=== PATIENT | female | born 1950 | race Caucasian/White ===

== ENCOUNTER 2018-11-18 08:47 | Observation (INO) ==
[2018-11-18] MEDS ORDERED: SODIUM CHLORIDE 0.9% 1,000 ML IV STA (09:07)
[2018-11-18] MEDS ORDERED: DICYCLOMINE 20 MG/2 ML AMP IM ONE (09:07)
[2018-11-18] MEDS ORDERED: METOCLOPRAMIDE 10 MG/2 ML VIAL IV STA (09:07)
[2018-11-18] MEDS ORDERED: PANTOPRAZOLE 40 MG VIAL IV STA (09:07)
[2018-11-18] MEDS ORDERED: metroNIDAZOLE INJ 500 MG in PREMIX 1 EACH IV STA (09:07)
[2018-11-18] MEDS ORDERED: ONDANSETRON 4 MG/2 ML VIAL IV STA (09:07)
[2018-11-18 09:21] LABS: Basophils % 0.3 % (0.0-0.8); Eosinophils # 0.1 10*3/uL (0.0-0.87); Eosinophils % 0.9 % (0.00-10.9); Hematocrit 36.9 VOL% (35.7-47.0); Hemoglobin 11.7 GM/DL (12.0-16.0); Immature Granulocytes % 0.3 %; Immature Granulocytes Absolute 0.02 #; Lymphocytes # 1.8 10*3/uL (1.4-4.0); Lymphocytes % 27.7 % (21.3-54.2); Mean Corpuscular HGB Conc 31.7 GM/DL (32-36); Mean Corpuscular Volume 76.4 FL (87-102); Mean Platelet Volume 11.2 FL (9.6-12.0); Monocytes % 9.6 % (1.7-12.7); Neutrophils % 61.2 % (38.7-73.9); Platelet Count 234 T/CUMM (130-400); Red Blood Count 4.83 MC/CUMM (3.8-5.5); Red Cell Distribution Width 22.2 % (9.3-17.3); White Blood Count 6.6 T/CUMM (4-12)
[2018-11-18 09:51] LABS: Alanine Aminotransferase 30 U/L (13-56); Albumin 3.8 G/DL (3.4-5.0); Alkaline Phosphatase 155 U/L (45-117); Amylase 107 U/L (25-115); Aspartate Amino Transferase 23 U/L (0-37); Bilirubin,Total < 0.39 MG/DL (0.2-1.0); Blood Urea Nitrogen 40 MG/DL (7-18); Calcium 8.6 MG/DL (8.5-10.1); Glucose 91 MG/DL (74-106); Osmolality,Calculated 271.7 MOS/KG (273-304); Total Protein 8.3 G/DL (6.4-8.3); Troponin I < 0.015 NG/ML (0.00-0.045)
[2018-11-18 10:02] LABS: Hypochromasia 1+; Platelet Estimate Adequate
[2018-11-18 10:03] LABS: Microcytosis 1+
[2018-11-18] MEDS ORDERED: ACETAMINOPHEN 325 MG TABLET PO PRN (10:21)
[2018-11-18] MEDS ORDERED: ONDANSETRON 4 MG/2 ML VIAL IV PRN (10:21)
[2018-11-18] MEDS ORDERED: PROMETHAZINE 25 MG/1 ML VIAL IM PRN (10:21)
[2018-11-18] MEDS ORDERED: TRIAMCINOLONE 0.1% CREAM 15 GM TUBE TOP PRN (10:25)
[2018-11-18] MEDS ORDERED: BETAMETHASONE VALERATE 0.1% CREAM 15 GM TUBE TOP PRN (13:00)
[2018-11-18] MEDS: SODIUM BICARB INJ 100 MEQ in DEXTROSE 5% NACL 0.45% 1,000 ML IV SCH ×2 (14:40→21:26)
[2018-11-18] MEDS: PANTOPRAZOLE 40 MG TABLET PO SCH (14:40)
[2018-11-18] MEDS ORDERED: carBAMazepine 200 MG TABLET PO SCH (15:00)
[2018-11-18] MEDS: CLORAZEPATE 3.75 MG TABLET PO SCH (15:31)
[2018-11-18 20:03] LABS: Apearance,Urine CLEAR (Clear); Bacteria,Urine Occasional /HPF (Few); Bilirubin,Urine Negative (Negative); Blood, Urine Negative (Negative); Glucose,Urine (UA) Negative (Negative); Ketones,Urine Negative (Negative); Mucus,Urine Occasional /LPF (Occasional); Nitrite,Urine Negative (Negative); Protein,Urine Negative; RBC,Urine 1 /HPF (0-4); Renal Epithelial Cells,Urine Occasional /HPF (<1); Squamous Epithelial Cell,Urine Occasional /HPF (0-10); Urine Color Straw (Yellow); Urine Specific Gravity 1.004 (1.001-1.035); Urine Urobilinogen < 2.0 EU/DL (0.2-1.0); WBC,Urine 19 /HPF (0-6)
[2018-11-18] MEDS: METOPROLOL TARTRATE 25 MG TABLET PO SCH (21:00)
[2018-11-18] MEDS: lamoTRIgine 100 MG TABLET PO SCH (21:00)
[2018-11-18] MEDS: CHOLESTYRAMINE 4 GM PACK PO SCH (21:01)
[2018-11-19] MEDS: SODIUM BICARB INJ 100 MEQ in DEXTROSE 5% NACL 0.45% 1,000 ML IV SCH (04:00)
[2018-11-19 05:46] LABS: Basophils % 0.6 % (0.0-0.8); Eosinophils % 1.1 % (0.00-10.9); Hematocrit 30.1 VOL% (35.7-47.0); Hemoglobin 9.7 GM/DL (12.0-16.0); Immature Granulocytes % 0.3 %; Immature Granulocytes Absolute 0.01 #; Lymphocytes # 1.3 10*3/uL (1.4-4.0); Lymphocytes % 36.2 % (21.3-54.2); Mean Corpuscular HGB Conc 32.2 GM/DL (32-36); Mean Corpuscular Volume 75.3 FL (87-102); Mean Platelet Volume 10.4 FL (9.6-12.0); Monocytes % 12.5 % (1.7-12.7); Neutrophils % 49.3 % (38.7-73.9); Platelet Count 181 T/CUMM (130-400); Red Cell Distribution Width 21.3 % (9.3-17.3); White Blood Count 3.5 T/CUMM (4-12)
[2018-11-19 06:18] LABS: Albumin 3.1 G/DL (3.4-5.0); Bilirubin,Total 0.5 MG/DL (0.2-1.0); Calcium 8.2 MG/DL (8.5-10.1); Osmolality,Calculated 283.4 MOS/KG (273-304); Risk Ratio 2.49; Thyroid Stimulating Hormone 3.57 uIU/ml (0.358-3.74); Total Protein 6.3 G/DL (6.4-8.3); VLDL CHOLESTEROL 19.8 MG/DL
[2018-11-19] MEDS ORDERED: DEXTROSE 5% NACL 0.45% 1,000 ML IV SCH (08:00)
[2018-11-19] MEDS: CLORAZEPATE 3.75 MG TABLET PO SCH (10:10)
[2018-11-19] MEDS: ATORVASTATIN 80 MG TABLET PO SCH (10:10)
[2018-11-19] MEDS: CHOLESTYRAMINE 4 GM PACK PO SCH ×2 (10:10→20:47)
[2018-11-19] MEDS: CHOLECALCIFEROL 1,000 UNIT TABLET PO SCH (10:10)
[2018-11-19] MEDS: CALCIUM (CARBONATE) 500 MG TABLET PO SCH (10:11)
[2018-11-19] MEDS: lamoTRIgine 100 MG TABLET PO SCH ×3 (10:11→10:47)
[2018-11-19] MEDS: PANTOPRAZOLE 40 MG TABLET PO SCH (10:11)
[2018-11-19] MEDS: METOPROLOL TARTRATE 25 MG TABLET PO SCH ×2 (10:42→20:47)
[2018-11-19] MEDS ORDERED: POTASSIUM CHLORIDE 20 MEQ TABLET PO PRN (10:43)
[2018-11-19] MEDS ORDERED: MAGNESIUM SULF RIDER 2 GM in PREMIX 1 EACH IV PRN (10:44)
[2018-11-19] MEDS ORDERED: MAGNESIUM SULF RIDER 4 GM in PREMIX 1 EACH IV PRN (10:44)
[2018-11-19 13:21] LABS: Apearance,Urine CLEAR (Clear); Bacteria,Urine Occasional /HPF (Few); Bilirubin,Urine Negative (Negative); Blood, Urine Negative (Negative); Glucose,Urine (UA) Negative (Negative); Hyaline Casts,Urine 1 /LPF (0-3); Ketones,Urine Negative (Negative); Nitrite,Urine Negative (Negative); Protein,Urine Negative; Squamous Epithelial Cell,Urine Occasional /HPF (0-10); Urine Color Straw (Yellow); Urine Specific Gravity 1.004 (1.001-1.035); Urine Urobilinogen < 2.0 EU/DL (0.2-1.0); WBC,Urine 4 /HPF (0-6)
[2018-11-19] MEDS ORDERED: lamoTRIgine 100 MG TABLET PO SCH (21:00)
[2018-11-20] MEDS: CLORAZEPATE 3.75 MG TABLET PO SCH (09:07)
[2018-11-20] MEDS: CHOLESTYRAMINE 4 GM PACK PO SCH (09:08)
[2018-11-20] MEDS: CHOLECALCIFEROL 1,000 UNIT TABLET PO SCH (09:08)
[2018-11-20] MEDS: lamoTRIgine 100 MG TABLET PO SCH (09:08)
[2018-11-20] MEDS: PANTOPRAZOLE 40 MG TABLET PO SCH (09:08)
[2018-11-20] MEDS: METOPROLOL TARTRATE 25 MG TABLET PO SCH (09:08)
[2018-11-20] MEDS: CALCIUM (CARBONATE) 500 MG TABLET PO SCH (09:08)
[2018-11-20] MEDS: ATORVASTATIN 80 MG TABLET PO SCH (09:08)
[2018-11-20] MEDS ORDERED: carBAMazepine 200 MG TABLET PO SCH (09:34)
[2018-11-20] MEDS ORDERED: LOPERAMIDE 2 MG CAPSULE PO ONE (09:35)
[2018-11-20] MEDS ORDERED: VITAMIN E 400 UNIT CAPSULE PO SCH (09:45)
[2018-11-20] MEDS ORDERED: PANTOPRAZOLE 40 MG TABLET PO SCH ×2 (09:45→21:00)
[2018-11-20] MEDS ORDERED: ASPIRIN EC 81 MG TABLET PO SCH (10:00)
[2018-11-20 11:59] VITALS: BP 141/68
== END 2018-11-20 12:30 | disposition home or self-care (01) ==
LOC: N.EDINP 08:47 → N.ED 08:47 → SUATTDRO 10:21 → N.2E 11:59
PROVIDERS: ADMIT Internal Medicine; ATTEND Internal Medicine Infectious Disease

== ENCOUNTER 2020-07-12 06:00 | Inpatient (IN) ==
[2020-07-12] MEDS ORDERED: cefOXitin 1,000 MG in SODIUM CHLORIDE 0.9% 100 ML IV ONE (06:30)
[2020-07-12 06:31] LABS: Basophils % 0.8 % (0.0-0.8); Eosinophils # 0.1 10*3/uL (0.0-0.87); Eosinophils % 1.3 % (0.00-10.9); Hematocrit 23.1 VOL% (35.7-47.0); Hemoglobin 7.1 GM/DL (12.0-16.0); Immature Granulocytes % 0.2 %; Immature Granulocytes Absolute 0.01 #; Lymphocytes # 2.2 10*3/uL (1.4-4.0); Lymphocytes % 42.4 % (21.3-54.2); Mean Corpuscular HGB Conc 30.7 GM/DL (32-36); Mean Corpuscular Volume 71.5 FL (87-102); Mean Platelet Volume 10.4 FL (9.6-12.0); Monocytes % 12.9 % (1.7-12.7); Neutrophils % 42.4 % (38.7-73.9); Platelet Count 248 T/CUMM (130-400); Red Blood Count 3.23 MC/CUMM (3.8-5.5); Red Cell Distribution Width 17.5 % (9.3-17.3); White Blood Count 5.2 T/CUMM (4-12)
[2020-07-12] MEDS ORDERED: BUPIVACAINE MPF 0.25% 30 ML VIAL ONE (06:31)
[2020-07-12] MEDS ORDERED: LIDOCAINE 1%/EPI INJ 20 ML VIAL ONE (06:31)
[2020-07-12] MEDS ORDERED: propofoL 200 MG/20 ML VIAL IV ONE (06:43)
[2020-07-12] MEDS ORDERED: ROCURONIUM 50 MG/5 ML VIAL IV ONE (06:43)
[2020-07-12] MEDS ORDERED: MIDAZOLAM 2 MG/2 ML VIAL ONE (06:43)
[2020-07-12] MEDS ORDERED: LIDOCAINE 2% 5 ML VIAL ONE (06:43)
[2020-07-12] MEDS ORDERED: fentaNYL 100 MCG/2 ML VIAL ONE ×2 (06:44→08:04)
[2020-07-12 06:51] LABS: Calcium 9.3 MG/DL (8.5-10.1); Osmolality,Calculated 286.4 MOS/KG (273-304); Potassium 4.7 MMOL/L (3.5-5.1)
[2020-07-12] MEDS ORDERED: ALBUMIN 5% 12.5 GM/250 ML VIAL IV ONE (06:56)
[2020-07-12] MEDS ORDERED: FAMOTIDINE 20 MG/2 ML VIAL IV ONE (06:56)
[2020-07-12] MEDS ORDERED: LACTATED RINGERS 1,000 ML IV SCH (07:00)
[2020-07-12] MEDS ORDERED: ePHEDrine 50 MG/ML VIAL ONE (07:30)
[2020-07-12] MEDS ORDERED: DEXAMETHASONE 4 MG/1 ML VIAL ONE (07:33)
[2020-07-12] MEDS ORDERED: ONDANSETRON 4 MG/2 ML VIAL ONE (07:33)
[2020-07-12] MEDS ORDERED: GLYCOPYRROLATE 0.4 MG/2 ML VIAL ONE ×2 (07:41→08:35)
[2020-07-12] MEDS ORDERED: ACETAMINOPHEN INJ 1,000 MG/100 ML VIAL IV ONE (07:57)
[2020-07-12] MEDS ORDERED: ESMOLOL 100 MG/10 ML VIAL IV ONE (08:03)
[2020-07-12] MEDS ORDERED: NEOSTIGMINE 10 MG/10 ML VIAL ONE (08:35)
[2020-07-12] MEDS ORDERED: TISSUE ADHESIVE 1 EACH APPLICATOR TOP ONE (08:42)
[2020-07-12] MEDS ORDERED: SODIUM CHLORIDE 0.9% 1,000 ML IV ONE (08:43)
[2020-07-12] MEDS ORDERED: SEVOFLURANE 1 UNIT/15 MINUTE INH ONE (08:43)
[2020-07-12] MEDS ORDERED: HYDROmorphone 2 MG/1 ML VIAL IV PRN ×2 (09:17→10:19)
[2020-07-12 09:18] LABS: Amorphous Crystals,Urine Few /HPF (Few); Bacteria,Urine Occasional /HPF (Few); Bilirubin,Urine Negative (Negative); Blood, Urine Negative (Negative); Glucose,Urine (UA) Negative (Negative); Ketones,Urine Negative (Negative); Mucus,Urine Occasional /LPF (Occasional); Nitrite,Urine Negative (Negative); Protein,Urine Negative; RBC,Urine 1 /HPF (0-4); Urine Appearance CLEAR (Clear); Urine Color Yellow (Yellow); Urine Specific Gravity 1.014 (1.001-1.035); Urine Urobilinogen < 2.0 EU/DL (0.2-1.0)
[2020-07-12 10:05] LABS: Basophils % 0.3 % (0.0-0.8); Eosinophils % 0.3 % (0.00-10.9); Hematocrit 25.2 VOL% (35.7-47.0); Hemoglobin 7.8 GM/DL (12.0-16.0); Immature Granulocytes % 0.8 %; Immature Granulocytes Absolute 0.05 #; Lymphocytes # 1.2 10*3/uL (1.4-4.0); Lymphocytes % 19.1 % (21.3-54.2); Mean Corpuscular Volume 74.3 FL (87-102); Mean Platelet Volume 11.1 FL (9.6-12.0); Monocytes % 5.3 % (1.7-12.7); Neutrophils % 74.2 % (38.7-73.9); Platelet Count 208 T/CUMM (130-400); Red Blood Count 3.39 MC/CUMM (3.8-5.5); Red Cell Distribution Width 19.4 % (9.3-17.3)
[2020-07-12] MEDS ORDERED: PROMETHAZINE 25 MG/1 ML VIAL IM PRN (10:19)
[2020-07-12] MEDS ORDERED: TRIAMCINOLONE 0.1% CREAM 15 GM TUBE TOP PRN (10:19)
[2020-07-12] MEDS ORDERED: ONDANSETRON 4 MG/2 ML VIAL IV PRN (10:19)
[2020-07-12] MEDS ORDERED: BETAMETHASONE VALERATE 0.1% TOP PRN (10:19)
[2020-07-12 10:21] LABS: Calcium 8.4 MG/DL (8.5-10.1); Osmolality,Calculated 284.5 MOS/KG (273-304); Potassium 4.3 MMOL/L (3.5-5.1)
[2020-07-12] MEDS: ATORVASTATIN 80 MG TABLET PO SCH (11:56)
[2020-07-12] MEDS: METOPROLOL TARTRATE 25 MG TABLET PO SCH (11:56)
[2020-07-12] MEDS: ASPIRIN EC 81 MG TABLET PO SCH (11:56)
[2020-07-12] MEDS: lamoTRIgine 100 MG TABLET PO SCH ×2 (11:56→21:05)
[2020-07-12] MEDS: CLORAZEPATE 3.75 MG TABLET PO SCH (11:57)
[2020-07-12] MEDS: CALCIUM (CARBONATE) 500 MG TABLET PO SCH (11:57)
[2020-07-12] MEDS: PANTOPRAZOLE 40 MG TABLET PO SCH (11:57)
[2020-07-12] MEDS: LACTATED RINGERS 1,000 ML IV SCH ×2 (11:59→22:15)
[2020-07-12] MEDS: carBAMazepine 200 MG TABLET PO SCH (17:55)
[2020-07-12] MEDS: VITAMIN E 400 UNIT CAPSULE PO SCH (17:55)
[2020-07-12] MEDS: CHOLECALCIFEROL 1,000 UNIT TABLET PO SCH (17:55)
[2020-07-13] MEDS: ENOXAPARIN 30 MG/0.3 ML SYRINGE SUBCUT SCH (03:09)
[2020-07-13 05:17] LABS: Basophils % 0.3 % (0.0-0.8); Eosinophils % 0.3 % (0.00-10.9); Hematocrit 26.6 VOL% (35.7-47.0); Hemoglobin 8.7 GM/DL (12.0-16.0); Immature Granulocytes % 0.5 %; Immature Granulocytes Absolute 0.03 #; Lymphocytes # 1.5 10*3/uL (1.4-4.0); Lymphocytes % 24.3 % (21.3-54.2); Mean Corpuscular HGB Conc 32.7 GM/DL (32-36); Mean Corpuscular Volume 74.5 FL (87-102); Monocytes % 11.5 % (1.7-12.7); Neutrophils % 63.1 % (38.7-73.9); Platelet Count 187 T/CUMM (130-400); Red Blood Count 3.57 MC/CUMM (3.8-5.5); Red Cell Distribution Width 19.3 % (9.3-17.3); White Blood Count 6.4 T/CUMM (4-12)
[2020-07-13 05:35] LABS: Calcium 7.9 MG/DL (8.5-10.1); Osmolality,Calculated 281.4 MOS/KG (273-304); Potassium 4.1 MMOL/L (3.5-5.1)
[2020-07-13] MEDS: LACTATED RINGERS 1,000 ML IV SCH ×2 (06:20→16:47)
[2020-07-13] MEDS: ASPIRIN EC 81 MG TABLET PO SCH (09:07)
[2020-07-13] MEDS: CLORAZEPATE 3.75 MG TABLET PO SCH (09:07)
[2020-07-13] MEDS: METOPROLOL TARTRATE 25 MG TABLET PO SCH (09:08)
[2020-07-13] MEDS: ATORVASTATIN 80 MG TABLET PO SCH (09:08)
[2020-07-13] MEDS: PANTOPRAZOLE 40 MG TABLET PO SCH (09:08)
[2020-07-13] MEDS: lamoTRIgine 100 MG TABLET PO SCH ×2 (09:08→21:04)
[2020-07-13] MEDS: CALCIUM (CARBONATE) 500 MG TABLET PO SCH (09:08)
[2020-07-13] MEDS: CHOLECALCIFEROL 1,000 UNIT TABLET PO SCH (16:05)
[2020-07-13] MEDS: carBAMazepine 200 MG TABLET PO SCH (16:05)
[2020-07-13] MEDS: VITAMIN E 400 UNIT CAPSULE PO SCH (16:05)
[2020-07-14] MEDS: ENOXAPARIN 30 MG/0.3 ML SYRINGE SUBCUT SCH (03:33)
[2020-07-14] MEDS: CLORAZEPATE 3.75 MG TABLET PO SCH (08:56)
[2020-07-14] MEDS: ASPIRIN EC 81 MG TABLET PO SCH (08:56)
[2020-07-14] MEDS: lamoTRIgine 100 MG TABLET PO SCH ×2 (08:57→20:35)
[2020-07-14] MEDS: ATORVASTATIN 80 MG TABLET PO SCH (08:57)
[2020-07-14] MEDS: CALCIUM (CARBONATE) 500 MG TABLET PO SCH (08:57)
[2020-07-14] MEDS: METOPROLOL TARTRATE 25 MG TABLET PO SCH (08:58)
[2020-07-14] MEDS: PANTOPRAZOLE 40 MG TABLET PO SCH (08:58)
[2020-07-14] MEDS: LACTATED RINGERS 1,000 ML IV SCH (12:30)
[2020-07-14] MEDS: CHOLECALCIFEROL 1,000 UNIT TABLET PO SCH (16:08)
[2020-07-14] MEDS: VITAMIN E 400 UNIT CAPSULE PO SCH (16:08)
[2020-07-14] MEDS: carBAMazepine 200 MG TABLET PO SCH (16:08)
[2020-07-15] MEDS: ENOXAPARIN 30 MG/0.3 ML SYRINGE SUBCUT SCH (03:36)
[2020-07-15 07:09] VITALS: BP 140/95
[2020-07-15] MEDS: lamoTRIgine 100 MG TABLET PO SCH (08:10)
[2020-07-15] MEDS: ASPIRIN EC 81 MG TABLET PO SCH (08:10)
[2020-07-15] MEDS: CLORAZEPATE 3.75 MG TABLET PO SCH (08:11)
[2020-07-15] MEDS: CALCIUM (CARBONATE) 500 MG TABLET PO SCH (08:11)
[2020-07-15] MEDS: ATORVASTATIN 80 MG TABLET PO SCH (08:11)
[2020-07-15] MEDS: PANTOPRAZOLE 40 MG TABLET PO SCH (08:11)
[2020-07-15] MEDS: METOPROLOL TARTRATE 25 MG TABLET PO SCH (08:11)
== END 2020-07-15 10:50 | disposition home or self-care (01) | DRG 330 ==
LOC: N.OR 06:00 → N.SDSINP 06:01 → EDSTATUS 07:30 → N.SDSINP 08:54 → N.3E 10:14
PROVIDERS: ADMIT Surgery; ATTEND Surgery

== ENCOUNTER 2020-12-02 05:45 | Observation (INO) ==
[2020-11-25 15:14] LABS: Basophils % 0.6 % (0.0-0.8); Eosinophils # 0.1 10*3/uL (0.0-0.87); Eosinophils % 1.5 % (0.00-10.9); Hematocrit 25.8 VOL% (35.7-47.0); Hemoglobin 7.6 GM/DL (12.0-16.0); Immature Granulocytes % 0.2 %; Immature Granulocytes Absolute 0.01 #; Lymphocytes # 1.8 10*3/uL (1.4-4.0); Lymphocytes % 38.4 % (21.3-54.2); Mean Corpuscular HGB Conc 29.5 GM/DL (32-36); Mean Corpuscular Volume 72.3 FL (87-102); Mean Platelet Volume 11.7 FL (9.6-12.0); Monocytes % 12.6 % (1.7-12.7); NRBC # 0.02 10*3/uL; Neutrophils % 46.7 % (38.7-73.9); Platelet Count 251 T/CUMM (130-400); Red Blood Count 3.57 MC/CUMM (3.8-5.5); Red Cell Distribution Width 17.2 % (9.3-17.3); White Blood Count 4.8 T/CUMM (4-12)
[2020-11-25 15:17] LABS: Bacteria,Urine Occasional /HPF (Few); Bilirubin,Urine Negative (Negative); Blood, Urine Negative (Negative); Glucose,Urine (UA) Negative (Negative); Hyaline Casts,Urine 3 /LPF (0-3); Ketones,Urine Negative (Negative); Mucus,Urine Occasional /LPF (Occasional); Nitrite,Urine Negative (Negative); Protein,Urine Negative; RBC,Urine 2 /HPF (0-4); Squamous Epithelial Cell,Urine Occasional /HPF (0-10); Urine Appearance CLEAR (Clear); Urine Color Yellow (Yellow); Urine Specific Gravity 1.016 (1.001-1.035); Urine Urobilinogen < 2.0 EU/DL (0.2-1.0)
[2020-11-25 15:24] LABS: PT Patient Result 11.3 SECS (10.5-12.0); Partial Thromboplastin Time 22.2 SECS (23.9-33.8)
[2020-11-25 15:31] LABS: Albumin 4.1 G/DL (3.4-5.0); Bilirubin,Total 0.6 MG/DL (0.20-1.00); Osmolality,Calculated 292.3 MOS/KG (273-304); Potassium 4.5 MMOL/L (3.5-5.1); Total Protein 7.8 G/DL (6.4-8.2)
[2020-12-02] MEDS ORDERED: propofoL 200 MG/20 ML VIAL IV ONE (06:26)
[2020-12-02] MEDS ORDERED: fentaNYL 100 MCG/2 ML VIAL ONE (06:26)
[2020-12-02] MEDS ORDERED: LIDOCAINE 2% 5 ML VIAL ONE (06:26)
[2020-12-02] MEDS ORDERED: KETAMINE 500 MG/10 ML VIAL ONE (06:27)
[2020-12-02] MEDS ORDERED: MIDAZOLAM 2 MG/2 ML VIAL ONE (06:27)
[2020-12-02] MEDS ORDERED: ceFAZolin 2,000 MG/50 ML DUPLEX IV ONE (06:30)
[2020-12-02] MEDS ORDERED: VANCOMYCIN INJ 1,000 MG in SODIUM CHLORIDE 0.9% 250 ML IV ONE (06:30)
[2020-12-02] MEDS ORDERED: ROPIVACAINE 0.5% 30 ML VIAL ONE (06:35)
[2020-12-02] MEDS ORDERED: DEXAMETHASONE 4 MG/1 ML VIAL ONE (06:35)
[2020-12-02] MEDS ORDERED: DIAZEPAM 5 MG TABLET PO ONE (06:46)
[2020-12-02] MEDS ORDERED: ACETAMINOPHEN 500 MG TABLET PO ONE (06:46)
[2020-12-02] MEDS ORDERED: GABAPENTIN 400 MG CAPSULE PO ONE (06:46)
[2020-12-02] MEDS ORDERED: FAMOTIDINE 20 MG TABLET ONE (06:49)
[2020-12-02] MEDS ORDERED: FAMOTIDINE 20 MG TABLET PO STA (06:54)
[2020-12-02] MEDS ORDERED: LACTATED RINGERS 1,000 ML IV SCH (07:00)
[2020-12-02] MEDS ORDERED: BUPIVACAINE SPINAL 0.75% 2 ML AMP SPINAL ONE (07:41)
[2020-12-02] MEDS ORDERED: SODIUM CHLORIDE 0.9% 250 ML IV ONE (07:41)
[2020-12-02] MEDS ORDERED: PHENYLEPHRINE 1 MG/10 ML SYRINGE IV ONE ×2 (07:41→08:12)
[2020-12-02] MEDS ORDERED: ONDANSETRON 4 MG/2 ML VIAL ONE (07:41)
[2020-12-02] MEDS ORDERED: LACTATED RINGERS 1,000 ML IV ONE (07:41)
[2020-12-02] MEDS ORDERED: TRANEXAMIC ACID 1,000 MG/10 ML VIAL ONE (07:41)
[2020-12-02] MEDS ORDERED: ePHEDrine 50 MG/ML VIAL ONE (07:57)
[2020-12-02] MEDS ORDERED: BACITRACIN OINT 0.9 GM PACK TOP ONE (08:05)
[2020-12-02] MEDS ORDERED: ONDANSETRON 4 MG/2 ML VIAL IV PRN (08:22)
[2020-12-02] MEDS ORDERED: MAGNESIUM HYDROXIDE SUSP 30 ML UDCUP PO PRN (08:22)
[2020-12-02] MEDS ORDERED: MORPHINE 2 MG/1 ML SYRINGE IV PRN (08:22)
[2020-12-02] MEDS: METOPROLOL TARTRATE 25 MG TABLET PO SCH (10:39)
[2020-12-02] MEDS: KETOROLAC 15 MG/1 ML VIAL IV SCH ×3 (10:39→21:10)
[2020-12-02] MEDS ORDERED: SODIUM CHLORIDE 0.9% 1,000 ML IV PRN (11:37)
[2020-12-02] MEDS: LACTATED RINGERS 1,000 ML IV SCH ×2 (12:55→22:50)
[2020-12-02] MEDS: PANTOPRAZOLE 40 MG TABLET PO SCH (12:55)
[2020-12-02 15:30] LABS: Hematocrit 23.1 VOL% (35.7-47.0)
[2020-12-02] MEDS: carBAMazepine 200 MG TABLET PO SCH (17:43)
[2020-12-02] MEDS: VITAMIN E 400 UNIT CAPSULE PO SCH (17:43)
[2020-12-02] MEDS: CHOLECALCIFEROL 1,000 UNIT TABLET PO SCH (17:43)
[2020-12-02] MEDS: lamoTRIgine 100 MG TABLET PO SCH (21:10)
[2020-12-02] MEDS: DOCUSATE SODIUM 100 MG CAPSULE PO SCH (21:12)
[2020-12-03] MEDS: KETOROLAC 15 MG/1 ML VIAL IV SCH (01:58)
[2020-12-03] MEDS ORDERED: FONDAPARINUX 2.5 MG/0.5 ML SYRINGE SUBCUT SCH (06:00)
[2020-12-03 07:08] LABS: Calcium 9.2 MG/DL (8.5-10.1); Osmolality,Calculated 299.6 MOS/KG (273-304); Potassium 4.7 MMOL/L (3.5-5.1)
[2020-12-03 07:36] LABS: Basophils % 0.4 % (0.0-0.8); Eosinophils % 0.6 % (0.00-10.9); Hematocrit 18.6 VOL% (35.7-47.0); Immature Granulocytes % 0.4 %; Immature Granulocytes Absolute 0.02 #; Lymphocytes # 1.3 10*3/uL (1.4-4.0); Lymphocytes % 27.6 % (21.3-54.2); Mean Corpuscular HGB Conc 30.1 GM/DL (32-36); Mean Corpuscular Volume 72.1 FL (87-102); Mean Platelet Volume 10.7 FL (9.6-12.0); Monocytes % 15.3 % (1.7-12.7); Neutrophils % 55.7 % (38.7-73.9); Platelet Count 174 T/CUMM (130-400); Red Blood Count 2.58 MC/CUMM (3.8-5.5); White Blood Count 4.6 T/CUMM (4-12)
[2020-12-03 07:40] LABS: Hemoglobin 5.6 GM/DL (12.0-16.0)
[2020-12-03 07:53] LABS: Hypochromasia 2+; Microcytosis 1+
[2020-12-03 07:54] LABS: Platelet Estimate Adequate
[2020-12-03] MEDS: PANTOPRAZOLE 40 MG TABLET PO SCH (08:31)
[2020-12-03] MEDS: carBAMazepine 200 MG TABLET PO SCH ×2 (08:31→16:18)
[2020-12-03] MEDS: CLORAZEPATE 3.75 MG TABLET PO SCH (08:31)
[2020-12-03] MEDS: lamoTRIgine 100 MG TABLET PO SCH ×2 (08:31→20:20)
[2020-12-03] MEDS: METOPROLOL TARTRATE 25 MG TABLET PO SCH (08:31)
[2020-12-03] MEDS: CALCIUM (CARBONATE) 500 MG TABLET PO SCH (08:32)
[2020-12-03] MEDS: ATORVASTATIN 20 MG TABLET PO SCH (08:32)
[2020-12-03] MEDS: DOCUSATE SODIUM 100 MG CAPSULE PO SCH ×2 (08:32→20:21)
[2020-12-03] MEDS: MORPHINE 2 MG/1 ML SYRINGE IV PRN ×2 (12:16→17:22)
[2020-12-03] MEDS: VITAMIN E 400 UNIT CAPSULE PO SCH (16:18)
[2020-12-03] MEDS: CHOLECALCIFEROL 1,000 UNIT TABLET PO SCH (16:18)
[2020-12-03 20:02] LABS: Hematocrit 28.9 VOL% (35.7-47.0); Hemoglobin 9.1 GM/DL (12.0-16.0)
[2020-12-04 05:04] LABS: Basophils % 0.3 % (0.0-0.8); Eosinophils # 0.1 10*3/uL (0.0-0.87); Eosinophils % 1.4 % (0.00-10.9); Hematocrit 28.9 VOL% (35.7-47.0); Hemoglobin 8.9 GM/DL (12.0-16.0); Immature Granulocytes % 0.4 %; Immature Granulocytes Absolute 0.03 #; Lymphocytes # 1.3 10*3/uL (1.4-4.0); Lymphocytes % 18.4 % (21.3-54.2); Mean Corpuscular HGB Conc 30.8 GM/DL (32-36); Mean Corpuscular Volume 76.9 FL (87-102); Mean Platelet Volume 10.8 FL (9.6-12.0); Monocytes % 15.5 % (1.7-12.7); Platelet Count 173 T/CUMM (130-400); Red Blood Count 3.76 MC/CUMM (3.8-5.5); Red Cell Distribution Width 19.9 % (9.3-17.3); White Blood Count 7.2 T/CUMM (4-12)
[2020-12-04] MEDS ORDERED: HEPARIN 5,000 UNIT/1 ML VIAL SUBCUT SCH (09:00)
[2020-12-04] MEDS: CALCIUM (CARBONATE) 500 MG TABLET PO SCH (09:14)
[2020-12-04] MEDS: METOPROLOL TARTRATE 25 MG TABLET PO SCH (09:17)
[2020-12-04] MEDS: ATORVASTATIN 20 MG TABLET PO SCH (09:17)
[2020-12-04] MEDS: PANTOPRAZOLE 40 MG TABLET PO SCH (09:18)
[2020-12-04] MEDS: carBAMazepine 200 MG TABLET PO SCH (09:19)
[2020-12-04] MEDS: DOCUSATE SODIUM 100 MG CAPSULE PO SCH (09:31)
[2020-12-04] MEDS: CLORAZEPATE 3.75 MG TABLET PO SCH (09:37)
[2020-12-04] MEDS: lamoTRIgine 100 MG TABLET PO SCH (09:37)
[2020-12-04 11:35] VITALS: BP 116/55
== END 2020-12-04 15:29 | disposition home or self-care (01) ==
LOC: N.3E 05:45 → N.SDSINP 05:45 → N.OR 05:45 → N.SDSINP 05:46 → EDSDCBED 07:36 → N.OR 07:37 → N.3E 09:50
PROVIDERS: ADMIT Orthopaedic Surgery; ATTEND Orthopaedic Surgery